=== PATIENT | female | born 1995 | race Caucasian/White ===

== ENCOUNTER 2018-06-16 19:45 | Inpatient (IN) ==
[2018-06-16 21:11] LABS: Basophils # (auto) 0.03 K/uL (0-0.2); Basophils % (auto) 0.2 %; Eosinophils # (auto) 0.12 K/uL (0-0.5); Eosinophils % (auto) 0.6 %; Hematocrit (blood only) 35.9 % (37-47); Hemoglobin 12.4 g/dL (12.0-16.0); Immature Granulocytes # (auto) 0.16 K/uL (0.00-0.02); Immature Granulocytes % (auto) 0.8 %; Lymphocytes # (auto) 4.42 K/uL (1.2-3.4); Lymphocytes % (auto) 22.3 %; Mean Corpuscular Hgb Conc 34.5 g/dL (32-36); Mean Corpuscular Volume 89.5 fL (80-100); Monocytes # (auto) 1.24 K/uL (0.11-0.59); Monocytes % (auto) 6.3 %; Neutrophils # (auto) 13.87 K/uL (1.4-6.5); Neutrophils % (auto) 69.8 %; Platelet Count 282 K/uL (130-400); RDW Coefficient of Variation 13.2 % (11.5-14.5); Red Blood Count 4.01 M/uL (4.2-5.4); White Blood Count 19.84 K/uL (4.8-10.8)
[2018-06-16] MEDS ORDERED: OXYTOCIN 30 UNITS/500 ML BAG IV PRN ×2 (22:41→22:50)
[2018-06-16] MEDS ORDERED: LACTATED RINGER'S 1,000 ML IV PRN ×3 (22:41→23:58)
[2018-06-16] MEDS ORDERED: ePHEDrine sulfate 50 MG/ML AMP ONE (22:42)
[2018-06-16] MEDS ORDERED: BUPIVACAINE 0.25% 30 ML VIAL ONE (22:42)
[2018-06-16] MEDS ORDERED: fentaNYL 2MCG/ML ROPIV 1.25MG/ML 100 ML BAG EPI ONE (22:43)
[2018-06-16] MEDS ORDERED: fentaNYL citrate 100 MCG/2 ML VIAL ONE (22:43)
--- NOTE | 2018-06-16 22:49 | History & Physical Report ---
Date of Service June 16, 2018 Assessment & Plan (1) Uterine contractions at greater than 20 weeks of gestation: 22 yo female at 39.5 wks with regular and painful ctxs, early labor, desires epidural and augmentation of ctxs if no cervical change VSS afebrile FHR reassuring GBS negative Plan admit, monitor, epidural for pain and augment with low dose pitocin if no cervical change Discussed the risks and benefits of pitocin All questions were answered History of Present Illness Chief Complaint: contractions Primary Care Provider: Marielos Rosario Patient is a 22 yo at 39.5wks who presented to L&D with ctxs, started at 4 pm and got closer and painful after 630 pm No lOF/VB +FM Her cervix was 1/ 60%/ -3 when she was checked by myself 2 hours ago She ambulated and came back to her room and now crying in pain and desires for epidural Cervix is changed to 2/ 70%/ -2, having ctxs q 1-3 min Her has been uncomplicated except smoker, occasional GBS negative Allergies Allergy/AdvReac Type Severity Reaction Status Date / Time No Known Allergies Allergy Unverified 10/19/14 01:28 Home Medications Home Medications Medication Instructions Recorded Confirmed Type 1 tab PO DAILY 06/16/18 06/16/18 History Patient History Social History marital status: Single Current Living Situation Comment: lives with parents and 2 daughters (3yr, 1 1/ 2 yr ) Other Information That Helps Us Care for You: No Feels Safe at Home: Yes Safety Concerns: Feels Safe At This Time Smoking Status: Former smoker Tobacco Type: cigarettes Cigarettes per Day: occasional cigarette Do You Dip or Chew Tobacco: No Second Hand Exposure: No Tobacco Cessation Education Requested by Patient: Yes Hx Alcohol Use: No Hx Substance Use: No Beliefs That Will Affect Care: None Preferred Language: Chinese OB History 2 FT in 2014 and 2016 [employer] History No h/o abnormal pap smear nor STD ( no h/o HSV/ Chlamydia) Review of Systems All systems reviewed & are unremarkable except as noted in HPI & below Physical Exam 2 Vital Signs (Past 24 Hours): Last Vital Signs Temp 36.6 C 06/16/18 22:02 Pulse 93 H 06/16/18 22:03 Resp 24 06/16/18 22:02 BP 111/73 06/16/18 22:03 Constitutional: WD/WN, vitals as above well nourished Seems painful and crying Results & Data Laboratory Results Lab Results 06/16/18 Range/Units 20:58 WBC 19.84 H (4.8-10.8) K/uL RBC 4.01 L (4.2-5.4) M/uL Hgb 12.4 (12.0-16.0) g/dL Hct 35.9 L (37-47) % MCV 89.5 (80-100) fL MCH 30.9 (25-34) pg MCHC 34.5 (32-36) g/dL RDW Std Deviation 43.0 (36.4-46.3) fL RDW Coeff of Ulises 13.2 (11.5-14.5) % Plt Count 282 (130-400) K/uL MPV 10.0 (7.4-10.4) fL Immature Gran % (Auto) 0.8 % Neut % (Auto) 69.8 % Lymph % (Auto) 22.3 % [place] % (Auto) 6.3 % Eos % (Auto) 0.6 % Baso % (Auto) 0.2 % Immature Gran # (Auto) 0.16 H (0.00-0.02) K/uL Neut # (Auto) 13.87 H (1.4-6.5) K/uL Lymph # (Auto) 4.42 H (1.2-3.4) K/uL [place] # (Auto) 1.24 H (0.11-0.59) K/uL Eos # (Auto) 0.12 (0-0.5) K/uL Baso # (Auto) 0.03 (0-0.2) K/uL Monitoring External Monitor Categ I Tocodynamometer Ctxs q1-3min
--- NOTE | 2018-06-16 23:57 | Anesthesiology Consultation ---
Date of Service June 16, 2018 @ 39.5 Smoker Assessment & Plan (1) Encounter for pre-operative examination: Chart Review Chart Review: Patient NOT seen in Pre Admission Testing and Acceptable Risk for Labor Epidural Consults Requested none ASA ASA2 Proposed Anesthesia Anesthesia Type: Labor Epidural Risk / Benefits Reviewed With: PT / POA / Parent / Guardian, Accepts Plan and Informed Consent Obtained NPO Date Last Intake of Fluids: 06/16/18 Time Last Intake of Fluids: 22:00 Date Last Intake of Solids: 06/16/18 Time Last Intake of Solids: 17:00 History Height/Weight Height: 5 ft 5 in Weight: 100 kg Allergies Allergy/AdvReac Type Severity Reaction Status Date / Time No Known Allergies Allergy Unverified 10/19/14 01:28 Medications Home Medications Medication Instructions Recorded Confirmed Last Taken 1 tab PO DAILY 06/16/18 06/16/18 06/15/18 08:00 Social History Smoking Status: Former smoker tobacco type: cigarettes Smoking cigarettes per day: occasional cigarette Do You Dip or Chew Tobacco: No Hx Alcohol Use: No Hx Substance Use: No Physical Exam Vital Signs Last Vital Signs Temp 36.7 C 06/16/18 22:48 Pulse 95 H 06/16/18 23:54 Resp 18 06/16/18 23:45 BP 120/55 L 06/16/18 23:54 Pulse Ox 95 06/16/18 23:53 Constitutional + obese Gravid Abdomen ENMT Mouth: no TMJ abnormality Thyromental Distance: > or= 3.5 Finger Breadths Mallampati Class: II Neck normal visual inspection Respiratory normal respiratory effort Cardiovascular Rate/Rhythm: regular rate and regular rhythm Neurologic moves all extremities Psychiatric Orientation: alert Testing Laboratory Results 06/16/18 20:58
[2018-06-16] MEDS ORDERED: fentaNYL 2MCG/ML ROPIV 1.25MG/ML 100 ML BAG EPI PRN (23:58)
[2018-06-16] MEDS ORDERED: ONDANSETRON INJ 2 MG/ML 2 ML VIAL IV PRN (23:58)
[2018-06-16] MEDS ORDERED: NALOXONE HCL 0.4 MG/1 ML VIAL/CARP IV PRN (23:58)
[2018-06-16] MEDS ORDERED: PROMETHAZINE HCL 6.25 MG in SODIUM CHLORIDE 0.9% 50 ML IV PRN (23:58)
[2018-06-16] MEDS ORDERED: DiphenhydrAMINE HCL 50 MG/ML VIAL IV PRN (23:58)
[2018-06-16] MEDS ORDERED: ePHEDrine sulfate 50 MG/ML AMP IV PRN (23:58)
[2018-06-16] MEDS ORDERED: NALOXONE HCL 1 MG in SODIUM CHLORIDE 0.9% 1000ML 1,000 ML IV PRN (23:58)
[2018-06-16] MEDS ORDERED: NALBUPHINE HCL INJ 10 MG/ML AMP IV PRN (23:58)
[2018-06-17] MEDS: LACTATED RINGER'S 1,000 ML IV SCH ×2 (02:18→08:31)
[2018-06-17] MEDS ORDERED: OXYTOCIN 30 UNITS/500 ML BAG IV PRN ×2 (07:44→14:17)
[2018-06-17] MEDS ORDERED: LACTATED RINGER'S 1,000 ML IV PRN (07:44)
--- NOTE | 2018-06-17 07:47 | Obstetrical Progress Note ---
Date of Service June 17, 2018 Subjective Patient is reevaluated She is comfortable with epidural FHR categ I Ctxs spaced out VE: 3/ 50%/ -3 AP: 22 yo at 39.6 wks presented with regular ctxs, received epidural for pain, ctxs spaced out, no cervical change, FHR reassuring Plan to start pitocin Continue to monitor Physical Exam 2 Vital Signs (Past 24 Hours): Last Vital Signs Temp 36.8 C 06/17/18 07:05 Pulse 86 06/17/18 07:42 Resp 20 06/17/18 07:05 BP 120/66 06/17/18 07:42 Pulse Ox 93 06/17/18 07:38
--- NOTE | 2018-06-17 11:22 | Obstetrical Progress Note ---
Date of Service June 17, 2018 Subjective Patient is reevaluated Comfortable with epidural VE: / 50-60%/ -2, AROM'ed clear fluid FHR 130's, good variability, occasional early decels with quick recovery, good accels TOoc: ctxs q 3-4 min, pitocin is at 14 miu/min Plan to continue to monitor Physical Exam 2 Vital Signs (Past 24 Hours): Last Vital Signs Temp 36.8 C 06/17/18 11:09 Pulse 69 06/17/18 11:12 Resp 20 06/17/18 11:05 BP 113/67 06/17/18 11:12 Pulse Ox 95 06/17/18 10:53
[2018-06-17] MEDS ORDERED: ACETAMINOPHEN 325 MG TAB PO PRN (11:57)
--- NOTE | 2018-06-17 13:23 | Obstetrical Progress Note ---
Date of Service June 17, 2018 Subjective Patient feels pressure and pain Epidural button helping VE; 6/ 80%/ 0, anterior fontanelle at 9 o'clock FHR categ I Continue to monitor closely Anticipate Physical Exam 2 Vital Signs (Past 24 Hours): Last Vital Signs Temp 36.6 C 06/17/18 13:08 Pulse 90 06/17/18 13:19 Resp 18 06/17/18 13:08 BP 113/63 06/17/18 13:12 Pulse Ox 87 L 06/17/18 13:19
[2018-06-17] MEDS ORDERED: miSOPROStol 200 MCG TAB ONE (14:08)
[2018-06-17] MEDS ORDERED: SUPERCREAM 0.870% 15 GM JAR EXT PRN (14:17)
[2018-06-17] MEDS ORDERED: miSOPROStol 200 MCG TAB PR ONE (14:17)
[2018-06-17] MEDS ORDERED: BENZOCAINE 20% AER SPR 82.5 GM CAN EXT PRN (14:17)
[2018-06-17] MEDS ORDERED: HYDROCORTISONE ACETATE 25 MG SUPP PR PRN (14:17)
[2018-06-17] MEDS ORDERED: DIPHTHERIA/TETANUS/PERTUSSIS 0.5 ML SYR/VIAL IM ONE (14:17)
[2018-06-17] MEDS ORDERED: BISACODYL 10 MG SUPP PR PRN (14:17)
--- NOTE | 2018-06-17 14:47 | Anesthesia Procedure Note ---
Date of Service June 17, 2018 Anesthesia Post Epidural Note Vital Signs Vital Signs: Temp Pulse Resp BP Pulse Ox 06/17/18 14:43 18 06/17/18 14:42 87 132/72 06/17/18 14:27 86 20 119/69 06/17/18 14:12 78 119/64 06/17/18 13:57 72 18 116/65 06/17/18 13:49 102 H 91 06/17/18 13:44 90 215/97 H 78 L 06/17/18 13:38 81 95 06/17/18 13:33 85 94 06/17/18 13:28 96 H 132/74 90 06/17/18 13:23 82 92 06/17/18 13:19 90 87 L 06/17/18 13:18 97 H 93 06/17/18 13:12 82 113/63 94 06/17/18 13:08 36.6 C 18 06/17/18 12:58 81 118/56 L 06/17/18 12:44 20 06/17/18 12:42 82 120/71 06/17/18 12:30 20 06/17/18 12:28 86 113/66 06/17/18 12:12 89 113/60 06/17/18 11:57 74 111/65 06/17/18 11:55 74 114/65 06/17/18 11:43 76 116/69 06/17/18 11:28 74 112/63 06/17/18 11:12 69 113/67 06/17/18 11:09 36.8 C 06/17/18 11:05 20 06/17/18 10:57 102 H 126/72 06/17/18 10:53 87 95 06/17/18 10:52 80 89 L 06/17/18 10:48 84 92 06/17/18 10:43 85 94 06/17/18 10:42 82 121/70 06/17/18 10:38 81 88 L 06/17/18 10:33 81 18 87 L 06/17/18 10:28 83 87 L 06/17/18 10:27 79 119/68 06/17/18 10:23 80 87 L 06/17/18 10:18 79 86 L 06/17/18 10:13 79 119/65 89 L 06/17/18 10:08 79 89 L 06/17/18 10:04 18 06/17/18 10:03 76 89 L 06/17/18 10:02 75 89 L 06/17/18 10:00 18 06/17/18 09:58 77 122/68 88 L 06/17/18 09:53 74 89 L 06/17/18 09:51 82 89 L 06/17/18 09:48 75 95 06/17/18 09:43 83 93 06/17/18 09:42 82 115/65 06/17/18 09:38 83 96 06/17/18 09:33 78 90 06/17/18 09:31 82 88 L 06/17/18 09:30 20 06/17/18 09:28 83 114/77 94 06/17/18 09:23 82 93 06/17/18 09:18 79 95 06/17/18 09:13 85 94 06/17/18 09:12 77 109/66 06/17/18 09:08 79 96 06/17/18 09:03 81 95 06/17/18 09:00 20 06/17/18 08:59 76 114/69 06/17/18 08:58 76 96 06/17/18 08:56 18 06/17/18 08:53 82 96 06/17/18 08:48 80 96 06/17/18 08:43 81 97 06/17/18 08:42 81 116/72 06/17/18 08:38 80 95 06/17/18 08:33 83 95 06/17/18 08:30 20 06/17/18 08:28 92 H 96 06/17/18 08:27 95 H 115/72 06/17/18 08:23 88 96 06/17/18 08:18 83 96 06/17/18 08:13 86 97 06/17/18 08:12 83 123/77 06/17/18 08:08 91 H 98 06/17/18 08:03 86 95 06/17/18 08:00 20 06/17/18 07:58 72 118/69 96 06/17/18 07:53 80 96 06/17/18 07:48 83 95 06/17/18 07:43 89 96 06/17/18 07:42 86 120/66 06/17/18 07:38 81 93 06/17/18 07:33 83 94 06/17/18 07:30 20 06/17/18 07:28 82 95 06/17/18 07:27 83 110/66 06/17/18 07:23 87 94 06/17/18 07:18 87 95 06/17/18 07:13 77 94 06/17/18 07:12 77 102/58 L 06/17/18 07:08 77 94 06/17/18 07:05 36.8 C 20 06/17/18 07:03 85 93 06/17/18 06:58 86 94 06/17/18 06:57 95 H 96/55 L 06/17/18 06:53 78 93 06/17/18 06:48 75 94 06/17/18 06:43 77 94 06/17/18 06:42 71 92/54 L 06/17/18 06:38 80 93 06/17/18 06:33 78 93 06/17/18 06:28 80 92 06/17/18 06:27 81 92/54 L 06/17/18 06:23 83 94 06/17/18 06:18 79 93 06/17/18 06:13 79 92/50 L 95 06/17/18 06:08 82 94 06/17/18 06:06 16 06/17/18 06:03 81 93 06/17/18 05:58 76 94 06/17/18 05:57 87 98/54 L 06/17/18 05:53 81 93 06/17/18 05:48 82 92 06/17/18 05:43 77 93 06/17/18 05:42 80 94/52 L 06/17/18 05:38 80 94 06/17/18 05:33 81 93 06/17/18 05:28 78 99/54 L 94 06/17/18 05:23 83 93 06/17/18 05:18 81 94 06/17/18 05:15 36.8 C 18 06/17/18 05:14 18 06/17/18 05:13 100 H 95 06/17/18 05:12 82 100/53 L 06/17/18 05:08 97 H 95 06/17/18 05:03 110 H 94 06/17/18 04:59 18 06/17/18 04:58 91 H 94 06/17/18 04:57 88 111/69 06/17/18 04:53 85 91 06/17/18 04:48 84 92 06/17/18 04:43 89 92 06/17/18 04:42 81 109/65 06/17/18 04:38 89 92 06/17/18 04:33 89 93 06/17/18 04:28 85 93 06/17/18 04:27 91 H 112/67 06/17/18 04:23 88 93 06/17/18 04:18 95 H 93 06/17/18 04:13 95 H 119/72 93 06/17/18 04:08 86 95 06/17/18 04:03 90 93 06/17/18 03:58 102 H 96 06/17/18 03:57 97 H 112/69 06/17/18 03:53 97 H 95 06/17/18 03:48 80 93 06/17/18 03:43 84 94 06/17/18 03:42 81 91/52 L 06/17/18 03:38 75 93 06/17/18 03:33 78 93 06/17/18 03:28 80 93 06/17/18 03:27 80 90/53 L 06/17/18 03:23 82 93 06/17/18 03:20 86 90/53 L 06/17/18 03:18 80 94 06/17/18 03:13 85 94 06/17/18 03:12 80 91/51 L 06/17/18 03:08 82 93 06/17/18 03:03 87 94 06/17/18 02:58 91 H 95 06/17/18 02:57 92 H 99/55 L 06/17/18 02:53 88 94 06/17/18 02:48 92 H 94 06/17/18 02:43 80 94 06/17/18 02:42 97 H 97/50 L 06/17/18 02:38 85 93 06/17/18 02:34 89 94 06/17/18 02:33 90 95 06/17/18 02:28 84 94 06/17/18 02:27 92 H 102/55 L 94 06/17/18 02:23 87 93 06/17/18 02:18 83 95 06/17/18 02:15 36.9 C 96 H 18 92 06/17/18 02:13 104 H 96 06/17/18 02:12 86 115/61 06/17/18 02:09 105 H 93 06/17/18 02:08 97 H 97 06/17/18 02:03 117 H 93 06/17/18 02:00 111 H 94 06/17/18 01:58 97 H 93 06/17/18 01:53 97 H 94 06/17/18 01:50 98 H 92 06/17/18 01:48 94 H 92 06/17/18 01:44 95 H 93 06/17/18 01:43 100 H 97 06/17/18 01:38 98 H 93 06/17/18 01:33 101 H 95 06/17/18 01:32 105 H 94 06/17/18 01:28 103 H 129/77 96 06/17/18 01:23 108 H 95 06/17/18 01:21 102 H 94 06/17/18 01:18 98 H 95 06/17/18 01:17 18 06/17/18 01:16 108 H 92 06/17/18 01:13 96 H 96 06/17/18 01:12 100 H 108/56 L 06/17/18 01:08 92 H 94 06/17/18 01:06 18 06/17/18 01:03 90 93 06/17/18 00:58 94 H 94 06/17/18 00:57 86 108/59 L 06/17/18 00:53 91 H 94 06/17/18 00:48 86 93 06/17/18 00:43 92 H 108/59 L 93 06/17/18 00:38 92 H 93 06/17/18 00:33 86 94 06/17/18 00:32 92 H 94 06/17/18 00:28 88 94 06/17/18 00:27 89 113/61 94 06/17/18 00:23 85 95 06/17/18 00:20 18 06/17/18 00:19 97 H 94 06/17/18 00:18 96 H 96 06/17/18 00:13 100 H 124/76 94 06/17/18 00:08 96 H 95 06/17/18 00:07 97 H 94 06/17/18 00:03 110 H 96 06/17/18 00:00 36.7 C 94 H 18 94 06/16/18 23:58 102 H 96 06/16/18 23:56 99 H 118/56 L 06/16/18 23:55 18 06/16/18 23:54 95 H 120/55 L 06/16/18 23:53 100 H 95 06/16/18 23:52 86 123/62 06/16/18 23:50 95 H 18 125/61 06/16/18 23:48 91 H 126/62 97 06/16/18 23:46 98 H 140/63 06/16/18 23:45 18 06/16/18 23:43 97 H 97 06/16/18 23:38 110 H 94 06/16/18 23:33 97 H 18 97 06/16/18 23:28 99 H 97 06/16/18 23:23 99 H 97 06/16/18 23:20 98 H 94 06/16/18 23:18 96 H 97 06/16/18 23:13 103 H 98 06/16/18 23:08 98 H 99 06/16/18 23:03 94 H 98 06/16/18 22:56 89 96 06/16/18 22:54 94 H 120/78 06/16/18 22:51 85 98 06/16/18 22:48 36.7 C 18 06/16/18 22:03 93 H 111/73 06/16/18 22:02 36.6 C 24 06/16/18 20:45 37 C 24 06/16/18 19:55 112 H 126/68 06/16/18 19:53 104 H 140/81 06/16/18 19:52 37.0 C 24 Notes Mental Status: alert / awake / arousable Nausea / Vomiting: adequately controlled Pain: adequately controlled Airway Patency, RR, SpO2: stable & adequate BP & HR: stable & adequate Hydration State: stable & adequate Neuraxial Anesthesia: was administered Anesthetic Complications: no major complications apparent Epidural: Removed without complications and With tip intact
[2018-06-17] MEDS: DOCUSATE SODIUM 100 MG CAP PO SCH (20:25)
[2018-06-17] MEDS: ACETAMINOPHEN 325 MG TAB PO PRN (20:26)
[2018-06-17] MEDS: IBUPROFEN 600 MG TAB PO PRN (21:21)
--- NOTE | 2018-06-17 23:52 | Delivery Summary ---
DATE OF OPERATION: 06/17/2018 TIME OF DELIVERY OF BABY: 1348 hours. TIME OF DELIVERY OF PLACENTA: 1405 hours. DETAILS OF DELIVERY: The patient was found to be fully dilated and desired to push. She pushed for only 5 minutes and delivered the head without difficulty. Shoulders came right after the head without any traction. Baby was handed off to the mother where mouth and nose were suctioned. Cord was clamped x2 and cut at 1 minute delay. Then perineum and vagina were checked for lacerations. There was only a first-degree right labial laceration which was repaired with 3-0 Vicryl and SH needle. Excellent hemostasis was achieved and the rest of the vagina and perineum were intact. Placenta was found to be in the vagina, delivered spontaneous as intact and complete. Uterus was explored and found to be empty. Lower segment was cleared of all clots and debris. EBL was 300 mL and the fundus was firm. Mother and baby tolerated the procedure well. Sponge, lap, needle count was correct x3. Baby was a viable male infant, Apgars 9/9. No complications happened and I was present during whole procedure. I attest to the content of the Intraoperative Record and any orders documented therein. Any exceptions are noted below. MTDD
[2018-06-18] MEDS: ACETAMINOPHEN 325 MG TAB PO PRN (00:26)
[2018-06-18] MEDS: IBUPROFEN 600 MG TAB PO PRN ×3 (01:56→18:45)
[2018-06-18 06:17] LABS: Hematocrit (blood only) 32.9 % (37-47); Hemoglobin 11.1 g/dL (12.0-16.0); Mean Corpuscular Hgb Conc 33.7 g/dL (32-36); Mean Corpuscular Volume 89.4 fL (80-100); Mean Platelet Volume 10.1 fL (7.4-10.4); Platelet Count 244 K/uL (130-400); RDW Coefficient of Variation 13.3 % (11.5-14.5); RDW Standard Deviation 43.1 fL (36.4-46.3); Red Blood Count 3.68 M/uL (4.2-5.4)
[2018-06-18] MEDS: DOCUSATE SODIUM 100 MG CAP PO SCH ×2 (08:20→21:15)
[2018-06-18] MEDS ORDERED: FERROUS SULFATE 325 MG TAB PO SCH (09:00)
[2018-06-18] MEDS ORDERED: PRENATAL VITAMIN 1 TAB PO SCH (09:00)
--- NOTE | 2018-06-18 09:45 | Obstetrical Progress Note ---
Date of Service June 18, 2018 Assessment & Plan (1) normal course: PPD #1 pt doing well No complaints wishes to go home today Subjective Ambulation: ambulating normally Voiding: no voiding problems Passing Gas:: Yes Diet Tolerance:: regular diet Lochia:: Small Feeding Type:: breast feeding Review of Systems All systems reviewed & are unremarkable except as noted in HPI & below Physical Exam Vital Signs (Past 24 Hours) Last Vital Signs Temp 36.5 C 06/18/18 04:30 Pulse 73 06/18/18 04:30 Resp 17 06/18/18 04:30 BP 110/74 06/18/18 04:30 Pulse Ox 97 06/18/18 04:30 Constitutional WD/WN, vitals as above well developed and well nourished Eyes PERRL, conjunctivae normal, anicteric sclerae Neck trachea midline, no thyromegaly Respiratory normal respiratory effort, lungs clear to auscultation Auscultation: no crackles, no rales and no wheezes Cardiovascular RRR, no murmur, no edema Gastrointestinal (Abdomen) normal bowel sounds, soft, nontender, no hepatosplenomegaly Uterus is below umbilicus Musculoskeletal no cyanosis or clubbing, extremities motor strength 5/5 Skin no rashes, warm and dry Neurologic patellar DTR's 2+ bilat, sensation intact Psychiatric A+Ox3, euthymic affect Genitourinary normal external appearance
[2018-06-18] MEDS ORDERED: BISACODYL 5 MG TABEC PO SCH (20:00)
== END 2018-06-18 21:30 | disposition home or self-care (01) | DRG 807 ==
LOC: OPB 19:45 → 4S1 19:45 → 4S2 06-17 17:00